=== PATIENT | male | born 2000 | race Two or more races ===

== ENCOUNTER 2020-11-04 10:39 | Emergency (ER) | payer MEDICAID, OTHER, SELFPAY ==
[~2020-11-04] VITALS: Ht 180.3 cm; Wt 84.0 kg
[2020-11-04 10:46] VITALS: BP 105/56
== END 2020-11-04 11:42 | disposition home or self-care (01) ==
LOC: ED 11:36
DX: L20.84 Intrinsic (allergic) eczema (principal)
CPT/HCPCS: 99283